=== PATIENT | female | born 1955 | race Caucasian/White ===

== ENCOUNTER → 2016-10-16 | Outpatient (CLI) | payer BC, OTHER ==
[~2016-10-16] MED LIST: FISH1000 OR; GLUC250C5 PO; HYDR25TA6 OR; K-TA10TA2 PO; LISI10TA4 OR; LUTECAP3 PO; METRONIDAZOLE; MULTIVIT PO; OMEP20TA7 OR; TAMO20TA4 PO; [UNRECOGNIZED DRUG - OTHER] OU; flagyl PO
--- NOTE | 2016-10-18 13:18 | RADONC ---
RADIATION ONCOLOGY FOLLOWUP NOTE DATE: 10/16/2016 CHART NUMBER: [id number] DIAGNOSIS: Left breast cancer. STAGE: IA, [id number]. ECOG PERFORMANCE STATUS: 0 FOLLOWUP NOTE: Ms. Millan is a very pleasant, 61-year-old white female with the diagnosis of a stage IA, [id number], moderately differentiated infiltrating ductal carcinoma of the left breast who is presenting to us today for routine followup visit 2 years and 2 months post completion of external beam radiation therapy. The patient presents today reporting that she is doing quite well with no complaints at this time related to her radiation therapy or disease. She has no breast or bone pain. REVIEW OF SYSTEMS: The patient's review of systems is noncontributory. Denies nausea, vomiting, fevers, chills, night sweats, diplopia, headaches, anxiety or depression, anorexia, weight loss, visual disturbances, chest pain, urinary or bowel difficulties, bone pain, or neurological problems. PHYSICAL EXAMINATION: The patient is a well-developed, well-nourished female in no acute distress. HEENT exam is normocephalic, atraumatic. Extraocular movements are intact. There is no palpable cervical, supraclavicular, infraclavicular, axillary, or inguinal lymphadenopathy present. Lungs are clear to auscultation and percussion. Heart has a regular rate and rhythm. Abdomen is benign with no hepatosplenomegaly, masses, or tenderness. Breast examination reveals no masses or discharge bilaterally. Skeletal examination reveals no tenderness to pressure or percussion of the bony skeleton. Extremities reveal no clubbing, cyanosis, or edema. Neurologic exam is grossly intact, as is the remainder of the physical examination. ASSESSMENT: The patient is clinically MYCHAL at this time and will be seen by us again in 6 months for further followup. She will also continue be followed by her other physicians as well. cc: MD Felicity Woodard DO
== END ==
LOC: M ONCR 11:13
PROVIDERS: ATTEND Radiology Radiation Oncology
DX: C50.812 Malignant neoplasm of overlapping sites of left female breast (principal)

== ENCOUNTER → 2016-11-25 | Outpatient (REF) | payer BC, OTHER | LOC: M LABDRAW1 11:36 | PROVIDERS: ATTEND Orthopaedic Surgery | DX: M17.12 Unilateral primary osteoarthritis, left knee (principal) ==

== ENCOUNTER → 2016-11-28 | Outpatient (REF) | payer BC, OTHER ==
[2016-11-28 19:14] LABS: FERRITIN 302 NG/ML (8-252); PERCENT SATURATION 8.8 % (13.2-37.4); TOTAL IRON BINDING CAPACITY 251 UG/DL (250-450)
== END ==
LOC: M LAB REF 16:48
PROVIDERS: ATTEND Internal Medicine
DX: M25.572 Pain in left ankle and joints of left foot (principal); D64.9 Anemia, unspecified

== ENCOUNTER → 2016-12-19 | Outpatient (REF) | payer OTHER ==
[2016-12-19 19:38] LABS: PERCENT SATURATION 25.5 % (13.2-37.4)
== END ==
LOC: M LAB REF 16:31
PROVIDERS: ATTEND Internal Medicine Medical Oncology
DX: C50.912 Malignant neoplasm of unspecified site of left female breast (principal)

== ENCOUNTER → 2017-03-13 | Outpatient (CLI) | payer BC, OTHER ==
--- NOTE | 2017-03-13 15:21 | REPMRS ---
Patient History The patient states she had a clinical breast exam in November 2016.Patient is postmenopausal, has history of cancer in the left breast at age 58, and has history of high-risk lesion on a previous biopsy at age 40. Family history of colorectal cancer in father at age 82 and colorectal cancer in sister at age 40. Malignant radio exam breast specimen, January 31, 2014. Malignant localization of breast nodule of the left breast, January 31, 2014. Malignant radio exam breast specimen of the left breast, December 28, 2013. Malignant US guided breast biopsy of the left breast, December 28, 2013. Digital Mammo Screening Bilat: March 13, 2017 - Exam #: [id number] Bilateral CC and MLO view(s) were taken. Technologist: Laura Crowologist Prior study comparison: March 12, 2016, bilateral digital mammo screening bilat performed at [facility]. August 21, 2015, left breast digital mammo diagnostic unilateral performed at [facility]. FINDINGS: There are scattered fibroglandular densities. There is a fairly symmetric fibroglandular pattern in both breasts. There has been no interval development of masses, areas of architectural distortion or clusters of microcalcifications typical of malignancy. ASSESSMENT: BI-RADS/ACR category 2 mammogram. Benign finding(s). Recommendation Routine screening mammogram of both breasts in 1 year (for women over age 40). This mammogram was interpreted with the aid of an FDA-approved computer-aided dectection system. Electronically Signed By: David Edmondson MD 03/13/17 [id number]
== END ==
LOC: M RAD 14:55
PROVIDERS: ATTEND Internal Medicine Medical Oncology
DX: Z12.31 Encounter for screening mammogram for malignant neoplasm of breast (principal); Z85.3 Personal history of malignant neoplasm of breast

== ENCOUNTER → 2017-03-20 | Outpatient (REF) | payer OTHER | LOC: M LAB REF 17:04 | PROVIDERS: ATTEND Internal Medicine Medical Oncology | DX: C50.919 Malignant neoplasm of unspecified site of unspecified female breast (principal) ==

== ENCOUNTER → 2017-04-23 | Outpatient (CLI) | payer BC, OTHER ==
--- NOTE | 2017-04-23 11:37 | RADONC ---
RADIATION ONCOLOGY FOLLOWUP NOTE: DATE: 04/23/2017 CHART NUMBER: [id number]. DIAGNOSIS: Left breast cancer. STAGE: IA, [id number]. ECOG PERFORMANCE STATUS: Zero. FOLLOWUP NOTE: Ms. Millan is a very pleasant, 61-year-old white female with the diagnosis of a stage IA, [id number] moderately differentiated infiltrating ductal carcinoma of the left breast who is presenting to us today for routine followup visit 2 years and 9 months post completion of external beam radiation therapy. The patient presents today reporting that she is doing quite well with no complaints at this time related to her radiation therapy or disease. She has no breast or bone pain. REVIEW OF SYSTEMS: The patient's review of systems is noncontributory. Denies nausea, vomiting, fevers, chills, night sweats, diplopia, headaches, anxiety or depression, anorexia, weight loss, visual disturbances, chest pain, urinary or bowel difficulties, bone pain, or neurological problems. PHYSICAL EXAMINATION: The patient is a well-developed, well-nourished, 61-year-old white female, in no acute distress. HEENT exam is normocephalic, atraumatic. Extraocular movements are intact. There is no palpable cervical, supraclavicular, infraclavicular, axillary, or inguinal lymphadenopathy present. Lungs are clear to auscultation and percussion. Heart has a regular rate and rhythm. Abdomen is benign with no hepatosplenomegaly, masses, or tenderness. Breast examination reveals no masses or discharge bilaterally. Skeletal examination reveals no tenderness to pressure or percussion of the bony skeleton. Extremities reveal no clubbing, cyanosis, or edema. Neurologic exam is grossly intact, as is the remainder of the physical examination. ASSESSMENT: The patient is clinically MYCHAL at this time and will be seen by us again in 6 months for further followup. She will also continue be followed by her other physicians as well. cc: Marissa Duke MD, FACP Felicity Vogt DO
== END ==
LOC: M ONCR 10:54
PROVIDERS: ATTEND Radiology Radiation Oncology
DX: Z08 Encounter for follow-up examination after completed treatment for malignant neoplasm (principal); Z92.3 Personal history of irradiation; Z85.3 Personal history of malignant neoplasm of breast

== ENCOUNTER → 2017-05-22 | Outpatient (REF) | payer OTHER ==
[2017-05-22 19:04] LABS: TOTAL IRON BINDING CAPACITY 324 UG/DL (250-450)
== END ==
LOC: M LAB REF 17:21
PROVIDERS: ATTEND Internal Medicine
DX: D50.9 Iron deficiency anemia, unspecified (principal); Z11.59 Encounter for screening for other viral diseases

== ENCOUNTER → 2017-07-21 | Outpatient (REF) | payer OTHER | LOC: M LAB REF 17:52 | PROVIDERS: ATTEND Internal Medicine Medical Oncology | DX: C50.919 Malignant neoplasm of unspecified site of unspecified female breast (principal) ==

== ENCOUNTER → 2017-10-15 | Outpatient (CLI) | payer BC, OTHER | LOC: M ONCR 14:11 | DX: C50.812 Malignant neoplasm of overlapping sites of left female breast (principal) | CPT/HCPCS: G0463 ==

== ENCOUNTER → 2017-10-24 | Outpatient (REF) | payer OTHER | LOC: M LAB REF 13:43 | DX: Z01.419 Encounter for gynecological examination (general) (routine) without abnormal findings (principal) ==

== ENCOUNTER → 2018-03-16 | Outpatient (CLI) | payer BC, OTHER | LOC: M RAD 11:20 | DX: Z12.31 Encounter for screening mammogram for malignant neoplasm of breast (principal); Z85.3 Personal history of malignant neoplasm of breast | CPT/HCPCS: 77067 ==

== ENCOUNTER → 2018-06-04 | Outpatient (REF) | payer BC, OTHER ==
[2018-06-04 19:13] LABS: FERRITIN 74 NG/ML (8-252); IRON (FE) 159 UG/DL (50-170); PERCENT SATURATION 50.6 % (13.2-45.0); TOTAL IRON BINDING CAPACITY 314 UG/DL (250-450)
== END ==
LOC: M LAB REF 17:43
DX: D50.9 Iron deficiency anemia, unspecified (principal)
CPT/HCPCS: 83550

== ENCOUNTER → 2018-11-25 | Outpatient (REF) | payer OTHER ==
[~2018-11-25] MED LIST changes: +ALLO100T PO; +AMLO2.5T3 PO; +FERR325T16 PO; +FISH100049 PO; +GLUC1CAP9 PO; +IRBE150T12 PO; +LASI20TA3 PO; +LUTE1CAP7 PO; +MILK140C PO; +MULTCAP PO; +OMEP-218 PO; -TAMO20TA4 PO; +TAMO20TA8 PO
== END ==
LOC: M LAB REF 11:46
PROVIDERS: ATTEND Internal Medicine
DX: I10 Essential (primary) hypertension (principal)

== ENCOUNTER → 2018-11-25 | Outpatient (CLI) | payer BC, OTHER ==
--- NOTE | 2018-11-25 14:44 | REP ---
CERVICAL SPINE, EIGHT VIEWS: HISTORY: Neck pain. The cervical spine is visualized from C1-2 to C6-7 level on the lateral radiographs. There is no acute fracture. The C4-5 through C6-7 intervertebral discs are decreased in height consistent with disc degeneration. Osteophytes are present on C5 through C7. There is narrowing of the C4 through C6 neural foramina secondary to uncinate process hypertrophy. There are 2 mm of anterior subluxation of C3 on C4. This is unchanged with flexion and reduces with extension. IMPRESSION: Degenerative change as described above. Electronically Signed by Hermelindo Crump MD 11/25/2018 02:55 P
== END ==
LOC: M RAD 12:34
PROVIDERS: ATTEND Internal Medicine Hematology & Oncology
DX: M50.321 Other cervical disc degeneration at C4-C5 level (principal); M50.322 Other cervical disc degeneration at C5-C6 level; M50.323 Other cervical disc degeneration at C6-C7 level

== ENCOUNTER → 2018-12-09 | Outpatient (REF) | payer OTHER ==
[2018-12-09 17:57] LABS: PERCENT SATURATION 33.4 % (13.2-45.0)
== END ==
LOC: M LAB REF 16:44
PROVIDERS: ATTEND Internal Medicine
DX: D50.9 Iron deficiency anemia, unspecified (principal)

== ENCOUNTER → 2019-03-17 | Outpatient (CLI) | payer BC, OTHER ==
[~2019-03-17] MED LIST changes: +FISH1000 PO; +GLUC500C37 PO; +MAGN400T2 PO
--- NOTE | 2019-03-17 14:42 | REP ---
BILATERAL SCREENING DIGITAL MAMMOGRAM WITH 3D TOMOSYNTHESIS: There are no palpable abnormalities or other breast complaints. The the patient states she had a clinical breast examination January 18, 2019. The Tyrer-Cuzick Score is: NA. The patient had left breast cancer identified by ultrasound guided biopsy in November 2013. Comparison is 02/16/2015. There are scattered areas of fibroglandular density. There is no dominant mass, micro calcific cluster or architectural distortion that would indicate malignancy. There are benign calcifications bilaterally. There is chronic scarring and deformity of the left breast medially as a consequence of the left breast surgery. This is unchanged. There are no additional findings on 3D tomosynthesiss. There is no change from the prior study. Impression: BIRADS/ACR category 2 mammogram. Benign findings . Recommendation: Routine annual screening mammography. This mammogram was interpreted with the aid of a FDA approved computer-aided detection system. A. Negative mammogram reports should not delay biopsy if a dominant or clinically suspicious mass is present. B. Not all breast cancers are identified by mammography or tomosynthesis. C. Adenosis and dense breasts may obscure an underlying neoplasm. Patient letter M1. Electronically Signed by David Danielle MD 03/17/2019 02:33 P
== END ==
LOC: M RAD 10:47
PROVIDERS: ATTEND Internal Medicine Hematology & Oncology
DX: Z12.31 Encounter for screening mammogram for malignant neoplasm of breast (principal); Z85.3 Personal history of malignant neoplasm of breast

== ENCOUNTER → 2019-04-28 | Outpatient (CLI) | payer BC, OTHER ==
--- NOTE | 2019-04-30 06:23 | RADONC ---
RADIATION ONCOLOGY FOLLOWUP NOTE DATE: 04/28/2019 CHART #: [id number] DIAGNOSIS: Left breast cancer. STAGE: I A, [id number]. ECOG PERFORMANCE STATUS: 0. FOLLOWUP NOTE: Ms. Millan is a very pleasant 63-year-old white female with the diagnosis of a stage I A, [id number] moderately differentiated infiltrating ductal carcinoma of the left breast who is presenting to us today for routine followup visit almost 5 years post completion of external beam radiation therapy. The patient presents today reporting that she is doing quite well with no complaints at this time related to her radiation therapy or disease. She has no breast or bone pain. REVIEW OF SYSTEMS: The patient's review of systems is noncontributory. Denies nausea, vomiting, fevers, chills, night sweats, diplopia, headaches, anxiety or depression, anorexia, weight loss, visual disturbances, chest pain, urinary or bowel difficulties, bone pain, or neurological problems. PHYSICAL EXAMINATION: The patient is a well-developed, well-nourished, 63-year-old in no acute distress. HEENT exam is normocephalic, atraumatic. Extraocular movements are intact. There is no palpable cervical, supraclavicular, infraclavicular, axillary, or inguinal lymphadenopathy present. Lungs are clear to auscultation and percussion. Heart has a regular rate and rhythm. Abdomen is benign with no hepatosplenomegaly, masses, or tenderness. Breast examination reveals no masses or discharge bilaterally. Skeletal examination reveals no tenderness to pressure or percussion of the bony skeleton. Extremities reveal no clubbing, cyanosis, or edema. Neurologic exam is grossly intact, as is the remainder of the physical examination. ASSESSMENT: The patient is clinically MYCHAL at this time. She is being followed and managed closely by her medical oncologist, Dr. Sydney Nolen, and therefore is being discharged from our followup except on a p.r.n. basis. cc: DO Sydney Solomon MD
== END ==
LOC: M ONCR 11:03
PROVIDERS: ATTEND Radiology Radiation Oncology
DX: C50.812 Malignant neoplasm of overlapping sites of left female breast (principal)

== ENCOUNTER → 2019-05-11 | Outpatient (REF) | payer BC, OTHER ==
[2019-05-11 18:09] LABS: PERCENT SATURATION 46.7 % (13.2-45.0)
== END ==
LOC: M LAB REF 16:36
PROVIDERS: ATTEND Internal Medicine
DX: D50.9 Iron deficiency anemia, unspecified (principal)

== ENCOUNTER → 2019-05-13 | Outpatient (REF) | payer OTHER ==
[2019-05-13 18:38] LABS: FOLATE > 24.0 NG/ML; VITAMIN B12 LEVEL 547 PG/ML
== END ==
LOC: M LAB REF 16:44
PROVIDERS: ATTEND Internal Medicine
DX: D50.9 Iron deficiency anemia, unspecified (principal)

== ENCOUNTER → 2019-06-22 | Outpatient (REF) | payer OTHER ==
[~2019-06-22] MED LIST changes: +HYDR12CA PO
[2019-06-22 13:33] LABS: BASO # 0.1 10^3/uL (0.0-0.2); BASO % 0.9 % (0.0-1.0); EOS # 0.2 10^3/uL (0.0-0.5); EOS % 4.1 % (0.0-3.0); HEMATOCRIT 36.9 % (36.0-47.0); HEMOGLOBIN 12.1 g/dl (12.0-15.5); LYMPH % 19.5 % (24.0-44.0); MEAN CORPUSCULAR HEMOGLOBIN 32.4 pg (27.0-33.0); MEAN CORPUSCULAR HGB CONC 32.8 g/dl (32.0-36.5); MEAN CORPUSCULAR VOLUME 98.9 fl (80.0-96.0); MONO # 0.4 10^3/uL (0.0-0.8); MONO % 6.9 % (0.0-5.0); NEUTROPHILS # 3.7 10^3/uL (1.5-8.5); NEUTROPHILS % 68.4 % (36.0-66.0); PLATELET COUNT, AUTOMATED 223 10^3/uL (150-450); RED BLOOD COUNT 3.73 10^6/uL (4.00-5.40); WHITE BLOOD COUNT 5.3 10^3/uL (4.0-10.0)
[2019-06-22 13:52] LABS: ALBUMIN 3.4 GM/DL (3.2-5.2); ALT/SGPT 25 U/L (12-78); BILIRUBIN,TOTAL 0.4 MG/DL (0.2-1.0); BLOOD UREA NITROGEN 19 MG/DL (7-18); CALCIUM LEVEL 9.1 MG/DL (8.8-10.2); CARBON DIOXIDE LEVEL 30 MEQ/L (21-32); CHLORIDE LEVEL 107 MEQ/L (98-107); CREATININE FOR GFR 0.68 MG/DL (0.55-1.30); GLOMERULAR FILTRATION RATE > 60.0 (>45); GLUCOSE, FASTING 120 MG/DL (70-100); LDH LACTATE DEHYDROGENASE 162 U/L (84-246); POTASSIUM SERUM 3.9 MEQ/L (3.5-5.1); SODIUM LEVEL 142 MEQ/L (136-145); TOTAL PROTEIN 6.7 GM/DL (6.4-8.2)
== END ==
LOC: M LABDRAW1 11:43
PROVIDERS: ATTEND Internal Medicine Hematology & Oncology
DX: C50.919 Malignant neoplasm of unspecified site of unspecified female breast (principal)

== ENCOUNTER → 2020-03-21 | Outpatient (CLI) | payer BC ==
[~2020-03-21] MED LIST changes: -IRBE150T12 PO; +IRBE150T7 PO
--- NOTE | 2020-03-21 12:08 | REPMRS ---
Patient History The patient states she had a clinical breast exam in October 2019. Family history of colorectal cancer at age 82 in father, colorectal cancer at age 40 in sister. Malignant radio exam breast specimen, January 31, 2014. Malignant localization of breast nodule of the left breast, January 31, 2014. Malignant radio exam breast specimen of the left breast, December 28, 2013. Malignant US guided breast biopsy of the left breast, December 28, 2013. Chemotherapy. Taking tamoxifen for 2 years 6 months. Digital Woman Screen Mammo: March 21, 2020 - Exam #: [id number] Bilateral CC and MLO view(s) were taken. Technologist: Vanesa Cline, Technologist Prior study comparison: March 17, 2019, bilateral digital mammo screening bilat, performed at [facility]. March 16, 2018, bilateral digital mammo screening bilat, performed at [facility]. March 13, 2017, bilateral digital mammo screening bilat, performed at [facility]. FINDINGS: There are scattered fibroglandular densities. The Volpara volumetric breast density category is:B. Post-treatment changes are again noted on the left. There has been no change in the appearance of the mammogram from the prior studies. There is a mild amount of scattered fibroglandular density which is fairly symmetric. There is no interval development of dominant mass, architectural distortion, or grouped microcalcification suggestive of malignancy. 3-D tomosynthesis shows no additional findings. Assessment: BI-RADS/ACR category 2 mammogram. Benign Findings. Recommendation Routine screening mammogram of both breasts in 1 year (for women over age 40). This mammogram was interpreted with the aid of an FDA-approved computer-aided dectection system. Electronically Signed By: Miles Clayton MD 03/21/20 1323
--- NOTE | 2020-04-19 15:21 | DEXA ---
AP SPINE L1 - L4 1.656 3.7 5.3 LT FEMUR TOTAL 1.411 3.2 4.4 LT NECK 1.313 2.0 3.4 RT FEMUR TOTAL 1.278 2.1 3.3 RT NECK 1.264 1.6 3.1 TOTAL BODY TOTAL OTHER COMMENTS: Normal Bone Densitometry of the spine and hips. The density of the spine has increased 4.9% since the initial exam on 09/25/2009. The increased 2.0% since the most recent exam on 11/08/2015. The density of the left hip has decreased 2.0% since the initial exam on 09/25/2009. The density of the left hip has decreased 4.4% since the most recent exam on 11/08/2015. The density of the right hip has decreased 6.2% since the initial exam on 09/25/2009. The density of the right hip has decreased 9.5% since the most recent exam on 11/08/2015. FOLLOW-UP: Recommendation for the next bone density exam: 5 years. JENNIFER
== END ==
LOC: M WHC 10:56
PROVIDERS: ATTEND Obstetrics & Gynecology
DX: Z12.31 Encounter for screening mammogram for malignant neoplasm of breast (principal); Z13.820 Encounter for screening for osteoporosis; Z80.0 Family history of malignant neoplasm of digestive organs; Z85.3 Personal history of malignant neoplasm of breast; Z92.21 Personal history of antineoplastic chemotherapy

== ENCOUNTER → 2020-03-21 | Outpatient (REF) | payer BC, OTHER ==
[2020-03-21 17:29] LABS: ALBUMIN 3.7 GM/DL (3.2-5.2); ALT/SGPT 24 U/L (12-78); BILIRUBIN,TOTAL 0.5 MG/DL (0.2-1.0); BLOOD UREA NITROGEN 12 MG/DL (7-18); CALCIUM LEVEL 9.5 MG/DL (8.8-10.2); CARBON DIOXIDE LEVEL 33 MEQ/L (21-32); CHLORIDE LEVEL 104 MEQ/L (98-107); CREATININE FOR GFR 0.82 MG/DL (0.55-1.30); GLOMERULAR FILTRATION RATE > 60.0 (>45); GLUCOSE, FASTING 90 MG/DL (70-100); POTASSIUM SERUM 4.3 MEQ/L (3.5-5.1); SODIUM LEVEL 141 MEQ/L (136-145)
[2020-03-21 17:39] LABS: BASO # 0.1 10^3/uL (0.0-0.2); BASO % 0.9 % (0.0-1.0); EOS # 0.2 10^3/uL (0.0-0.5); EOS % 2.4 % (0.0-3.0); HEMATOCRIT 41.5 % (36.0-47.0); HEMOGLOBIN 13.5 g/dl (12.0-15.5); LYMPH # 1.3 10^3/uL (1.5-5.0); LYMPH % 16.8 % (24.0-44.0); MEAN CORPUSCULAR HEMOGLOBIN 32.6 pg (27.0-33.0); MEAN CORPUSCULAR HGB CONC 32.5 g/dl (32.0-36.5); MEAN CORPUSCULAR VOLUME 100.2 fl (80.0-96.0); MONO # 0.7 10^3/uL (0.0-0.8); MONO % 8.5 % (0.0-5.0); NEUTROPHILS # 5.5 10^3/uL (1.5-8.5); PLATELET COUNT, AUTOMATED 246 10^3/uL (150-450); RED BLOOD COUNT 4.14 10^6/uL (4.00-5.40); WHITE BLOOD COUNT 7.8 10^3/uL (4.0-10.0)
[2020-03-22 10:20] LABS: VITAMIN B12 LEVEL 535 PG/ML (247-911)
== END ==
LOC: M LAB REF 15:40
PROVIDERS: ATTEND Internal Medicine Medical Oncology
DX: C50.919 Malignant neoplasm of unspecified site of unspecified female breast (principal)

== ENCOUNTER → 2020-12-30 | Outpatient (CLI) | payer BC, OTHER ==
[~2020-12-30] MED LIST changes: +FERR324T21 PO; -FERR325T16 PO
== END ==
LOC: M LABSMTC 10:21
PROVIDERS: ATTEND Anesthesiology
DX: Z01.818 Encounter for other preprocedural examination (principal); Z20.822 Contact with and (suspected) exposure to COVID-19

== ENCOUNTER → 2021-02-22 | Outpatient (CLI) | payer MEDICARE, BC, OTHER ==
[~2021-02-22] MED LIST changes: +CYAN100050 PO; +VITMTA PO
== END ==
LOC: M LABSMTC 09:52
PROVIDERS: ATTEND Anesthesiology
DX: Z01.818 Encounter for other preprocedural examination (principal); Z11.52 Encounter for screening for COVID-19

== ENCOUNTER 2021-02-27 06:56 | Day surgery (SDC) | payer MEDICARE, BC, OTHER ==
[~2021-02-27] VITALS: Ht 172.7 cm; Wt 96.2 kg
[~2021-02-27 06:56] MED LIST changes: +NS 1,000 ML IV ONE
[2021-02-27] MEDS ORDERED: propofoL 200 MG/20 ML VIAL As Ordered ONE ×3 (07:11→09:38)
[2021-02-27] MEDS ORDERED: LIDOCAINE 2% 100MG/5ML SDV (FOR ANES.) As Ordered ONE (07:11)
[2021-02-27] MEDS ORDERED: fentaNYL 100 MCG/2 ML INJECTION (J3010) As Ordered ONE (07:11)
--- NOTE | 2021-02-27 09:57 | ROOR ---
Patient Name: Sowmya Millan Procedure Date: 02/27/2021 8:56 AM Date of : 1955 Age: 65 Room: [facility] Gender: Female Note Status: Finalized Procedure: Upper GI endoscopy Indications: Suspected esophageal reflux Providers: Bimal Hahn MD Referring MD: Felicity Vogt DO Requesting Provider: Medicines: Monitored Anesthesia Care Complications: No immediate complications. Procedure: Pre-Anesthesia Assessment: - Prior to the procedure, a History and Physical was performed, and patient medications and allergies were reviewed. The patient is competent. The risks and benefits of the procedure and the sedation options and risks were discussed with the patient. All questions were answered and informed consent was obtained. Patient identification and proposed procedure were verified by the physician, the nurse and the print binding worker in the procedure room. Mental Status Examination: alert and oriented. Airway Examination: normal oropharyngeal airway and neck mobility. Prophylactic Antibiotics: The patient does not require prophylactic antibiotics. Prior Anticoagulants: The patient has taken no previous anticoagulant or antiplatelet agents. ASA Grade Assessment: III - A patient with severe systemic disease. After reviewing the risks and benefits, the patient was deemed in satisfactory condition to undergo the procedure. The anesthesia plan was to use monitored anesthesia care (MAC). Immediately prior to administration of medications, the patient was re-assessed for adequacy to receive sedatives. The heart rate, respiratory rate, oxygen saturations, blood pressure, adequacy of pulmonary ventilation, and response to care were monitored throughout the procedure. The physical status of the patient was re-assessed after the procedure. The Endoscope was introduced through the mouth, and advanced to the second part of duodenum. The upper GI endoscopy was accomplished without difficulty. The patient tolerated the procedure well. Findings: The examined esophagus was normal. The Z-line was irregular. Diffuse mildly erythematous mucosa without bleeding was found in the stomach. The first portion of the duodenum and second portion of the duodenum were normal. Impression: - Normal esophagus. - Z-line irregular. - Erythematous mucosa in the stomach. - Normal first portion of the duodenum and second portion of the duodenum. - No specimens collected. Recommendation: - Discharge patient to home. - Resume previous diet. - Continue present medications. Procedure Code(s): --- Professional --- 76339, Esophagogastroduodenoscopy, flexible, transoral; diagnostic, including collection of specimen(s) by brushing or washing, when performed (separate procedure) Diagnosis Code(s): --- Professional --- K22.8, Other specified diseases of esophagus K31.89, Other diseases of stomach and duodenum CPT copyright 2019 [employer]. All rights reserved. The codes documented in this report are preliminary and upon document advisor review may be revised to meet current compliance requirements. Bimal Hahn MD Bimal Hahn MD 02/27/2021 9:57:38 AM Electronically signed by Bimal Hahn MD Number of Addenda: 0 Note Initiated On: 02/27/2021 8:56 AM Estimated Blood Loss: Estimated blood loss: none.
[2021-02-27 10:13] VITALS: BP 153/80
--- NOTE | 2021-02-27 10:29 | ROOR ---
Patient Name: Sowmya Millan Procedure Date: 02/27/2021 8:57 AM Date of : 1955 Age: 65 Room: [facility] Gender: Female Note Status: Finalized Procedure: Colonoscopy Indications: Surveillance: Personal history of adenomatous polyps on last colonoscopy 5 years ago Providers: Bimal Hahn MD Referring MD: Felicity Vogt DO Requesting Provider: Medicines: Monitored Anesthesia Care Complications: No immediate complications. Procedure: Pre-Anesthesia Assessment: - Prior to the procedure, a History and Physical was performed, and patient medications and allergies were reviewed. The patient is competent. The risks and benefits of the procedure and the sedation options and risks were discussed with the patient. All questions were answered and informed consent was obtained. Patient identification and proposed procedure were verified by the physician, the nurse and the outpatient receptionist in the procedure room. Mental Status Examination: alert and oriented. Airway Examination: normal oropharyngeal airway and neck mobility. Prophylactic Antibiotics: The patient does not require prophylactic antibiotics. Prior Anticoagulants: The patient has taken no previous anticoagulant or antiplatelet agents. ASA Grade Assessment: III - A patient with severe systemic disease. After reviewing the risks and benefits, the patient was deemed in satisfactory condition to undergo the procedure. The anesthesia plan was to use monitored anesthesia care (MAC). Immediately prior to administration of medications, the patient was re-assessed for adequacy to receive sedatives. The heart rate, respiratory rate, oxygen saturations, blood pressure, adequacy of pulmonary ventilation, and response to care were monitored throughout the procedure. The physical status of the patient was re-assessed after the procedure. The Colonoscope was introduced through the anus and advanced to the cecum, identified by appendiceal orifice and ileocecal valve. The colonoscopy was performed without difficulty. The patient tolerated the procedure well. The quality of the bowel preparation was excellent. Findings: The perianal and digital rectal examinations were normal. A 4 mm polyp was found in the proximal descending colon. The polyp was sessile. The polyp was removed with a jumbo cold forceps. Resection and retrieval were complete. Estimated blood loss was minimal. Many medium-mouthed diverticula were found in the sigmoid colon, descending colon, splenic flexure, transverse colon, hepatic flexure and ascending colon. Impression: - One 4 mm polyp in the proximal descending colon, removed with a jumbo cold forceps. Resected and retrieved. - Diverticulosis in the sigmoid colon, in the descending colon, at the splenic flexure, in the transverse colon, at the hepatic flexure and in the ascending colon. Recommendation: - Discharge patient to home. - Resume previous diet. - Continue present medications. - Return to my office as previously scheduled. Procedure Code(s): --- Professional --- 83311, Colonoscopy, flexible; with biopsy, single or multiple Diagnosis Code(s): --- Professional --- Z86.010, Personal history of colonic polyps K63.5, Polyp of colon K57.30, Diverticulosis of large intestine without perforation or abscess without bleeding CPT copyright 2019 [employer]. All rights reserved. The codes documented in this report are preliminary and upon vp strategic planning review may be revised to meet current compliance requirements. Bimal Hahn MD Bimal Hahn MD 02/27/2021 10:29:38 AM Electronically signed by Bimal Hahn MD Number of Addenda: 0 Note Initiated On: 02/27/2021 8:57 AM Estimated Blood Loss: Estimated blood loss was minimal.
== END 2021-02-27 10:15 | disposition home or self-care (01) ==
LOC: M OPP 06:56
PROVIDERS: ATTEND Surgery
DX: Z12.11 Encounter for screening for malignant neoplasm of colon (principal); Z86.010 Personal history of colon polyps; D12.4 Benign neoplasm of descending colon; K57.30 Diverticulosis of large intestine without perforation or abscess without bleeding; K22.8 Other specified diseases of esophagus; K31.89 Other diseases of stomach and duodenum; Z79.899 Other long term (current) drug therapy; Z88.5 Allergy status to narcotic agent; Z87.39 Personal history of other diseases of the musculoskeletal system and connective tissue; Z85.3 Personal history of malignant neoplasm of breast; Z92.21 Personal history of antineoplastic chemotherapy; Z92.3 Personal history of irradiation
CPT/HCPCS: 43235; 45380; 88305; J3010

== ENCOUNTER → 2021-03-22 | Outpatient (CLI) | payer MEDICARE, BC ==
[~2021-03-22] MED LIST changes: -NS 1,000 ML IV ONE
--- NOTE | 2021-03-22 12:46 | REPMRS ---
Patient History The patient states she had a clinical breast exam in October 2020. Patient is postmenopausal, has history of cancer in the left breast at age 58, has history of high-risk lesion on a previous biopsy at age 40, and had previous chemotherapy. Family history of colorectal cancer at age 82 in father, colorectal cancer at age 40 in sister. Malignant radio exam breast specimen, January 31, 2014. Malignant localization of breast nodule of the left breast, January 31, 2014. Malignant radio exam breast specimen of the left breast, December 28, 2013. Malignant US guided breast biopsy of the left breast, December 28, 2013. Chemotherapy. Took tamoxifen for 5 years. No breast complaints today Patient signed the MRS sheet 1st covid vaccine 10/01/20-right arm-Pfizer 2nd covid vaccine 10/22/20-right arm Priors on PACS Patient Identification Verified Digital Woman Screen Mammo: March 22, 2021 - Exam #: [id number] Bilateral CC and MLO view(s) were taken. Technologist: Aidee Love Technologist Prior study comparison: March 21, 2020, bilateral digital woman screen mammo performed at [facility]. March 17, 2019, bilateral digital mammo screening bilat, performed at [facility]. FINDINGS: There are scattered fibroglandular densities. The Volpara volumetric breast density category is:B. There has been no change in the appearance of the mammogram from the prior studies. There is a mild amount of scattered fibroglandular density which is fairly symmetric. There is no interval development of dominant mass, architectural distortion, or grouped microcalcification suggestive of malignancy. 3-D tomosynthesis shows no additional findings. Assessment: BI-RADS/ACR category 1 mammogram. Negative Mammogram. Recommendation Routine screening mammogram of both breasts in 1 year (for women over age 40). This mammogram was interpreted with the aid of an FDA-approved computer-aided dectection system. Electronically Signed By: Miles Clayton MD 03/22/21 1237
== END ==
LOC: M WHC 11:07
PROVIDERS: ATTEND Advanced Practice Midwife
DX: Z12.31 Encounter for screening mammogram for malignant neoplasm of breast (principal)

== ENCOUNTER → 2022-03-25 | Outpatient (CLI) | payer MEDICARE, BC, OTHER ==
[~2022-03-25] MED LIST changes: +ARTIDRO OU; +OMEP-173 PO; -OMEP-218 PO
== END ==
LOC: M WHC 10:47
PROVIDERS: ATTEND Obstetrics & Gynecology
DX: Z12.31 Encounter for screening mammogram for malignant neoplasm of breast (principal); Z13.820 Encounter for screening for osteoporosis

== ENCOUNTER → 2023-03-27 | Outpatient (CLI) | payer MEDICARE, BC, OTHER ==
[~2023-03-27] MED LIST changes: +CYAN-1 PO; -CYAN100050 PO; -K-TA10TA2 PO; +POTA-165 PO
== END ==
LOC: M WHC 11:23
PROVIDERS: ATTEND Obstetrics & Gynecology
DX: Z12.31 Encounter for screening mammogram for malignant neoplasm of breast (principal); Z85.3 Personal history of malignant neoplasm of breast

== ENCOUNTER → 2024-03-29 | Outpatient (CLI) | payer MEDICARE, BC ==
[~2024-03-29] MED LIST changes: +IRBE150T27 PO; -IRBE150T7 PO; +MILK87.5 PO; +MV-M1TAB13 PO
== END ==
LOC: M WHC 13:09
PROVIDERS: ATTEND Obstetrics & Gynecology
DX: Z12.31 Encounter for screening mammogram for malignant neoplasm of breast (principal); Z13.820 Encounter for screening for osteoporosis; Z78.0 Asymptomatic menopausal state

== ENCOUNTER → 2024-04-19 | Outpatient (REF) | payer MEDICARE, BC, OTHER | LOC: M LAB REF 11:22 | PROVIDERS: ATTEND Internal Medicine | DX: E07.9 Disorder of thyroid, unspecified (principal) ==

== ENCOUNTER → 2024-11-19 | Outpatient (CLI) | payer MEDICARE, BC, OTHER | LOC: M PLAIMG 13:30 | PROVIDERS: ATTEND Internal Medicine | DX: R05.9 Cough, unspecified (principal) ==

== ENCOUNTER → 2024-12-06 | Outpatient (REF) | payer MEDICARE, BC, OTHER | LOC: M LAB REF 14:37 | PROVIDERS: ATTEND Internal Medicine | DX: Z11.59 Encounter for screening for other viral diseases (principal) ==

== ENCOUNTER 2025-03-16 11:37 | Emergency (ER) | payer MEDICARE, BC, OTHER ==
[~2025-03-16] VITALS: Ht 170.2 cm; Wt 95.0 kg
[2025-03-16] MEDS: RABIES VACCINE HUMAN 2.5 INTERNATIONAL UNITS/ML VIAL (IMOVAX) IM ONE (13:44)
[2025-03-16 14:09] VITALS: BP 155/71; TEMP 97.6; O2SAT 100
== END 2025-03-16 14:11 | disposition home or self-care (01) ==
LOC: M ED 11:37
DX: Z20.3 Contact with and (suspected) exposure to rabies (principal); Z29.14 Encounter for prophylactic rabies immune globulin; W55.81XA Bitten by other mammals, initial encounter; Z88.5 Allergy status to narcotic agent; E11.9 Type 2 diabetes mellitus without complications; I10 Essential (primary) hypertension; Z79.899 Other long term (current) drug therapy; Y99.9 Unspecified external cause status

== ENCOUNTER 2025-03-19 09:20 | Emergency (ER) | payer MEDICARE, BC ==
[~2025-03-19] VITALS: Ht 170.2 cm; Wt 95.8 kg
[2025-03-19 09:21] VITALS: TEMP 96.7; O2SAT 98
[2025-03-19 09:25] VITALS: BP 168/72
[2025-03-19] MEDS: RABIES VACCINE HUMAN 2.5 INTERNATIONAL UNITS/ML VIAL (IMOVAX) IM ONE (11:59)
== END 2025-03-19 12:09 | disposition home or self-care (01) ==
LOC: M ED 09:20
DX: Z23 Encounter for immunization (principal); Z20.3 Contact with and (suspected) exposure to rabies; Z29.14 Encounter for prophylactic rabies immune globulin

== ENCOUNTER → 2025-03-31 | Outpatient (CLI) | payer MEDICARE, BC ==
[~2025-03-31] MED LIST changes: +HYDR12.510 PO; -HYDR12CA PO
== END ==
LOC: M WHC 11:20
PROVIDERS: ATTEND Obstetrics & Gynecology
DX: Z12.31 Encounter for screening mammogram for malignant neoplasm of breast (principal); R92.323 Mammographic fibroglandular density, bilateral breasts; R92.1 Mammographic calcification found on diagnostic imaging of breast